=== PATIENT | male | born 1945 | race American Indian/Alaskan Native ===

== ENCOUNTER 2019-12-13 15:37 | Emergency (ER) | payer SELFPAY ==
--- NOTE | 2019-12-13 18:05 | Event Note ---
ED Screening Note Date of service: 12/13/19 Time: 18:04 ED Screening Note: Patient complains of sudden worsening of low back pain and faculty standing He states mild weakness in his legs without numbness He denies any new injuries Denies loss of bladder/bowel control This initial assessment/diagnostic orders/clinical plan/treatment(s) is/are subject to change based on patients health status, clinical progression and re- assessment by fellow clinical providers in the ED. Further treatment and workup at subsequent clinical providers discretion. Patient/guardian urged not to elope from the ED as their condition may be serious if not clinically assessed and managed. Initial orders include: CT lumbar
[2019-12-13 19:02] LABS: Basophils % (Auto) 0.5 % (0.0-1.8); Eosinophils % (Auto) 0.1 % (0.0-4.3); Hematocrit 40.1 % (35.5-45.6); Hemoglobin 13.8 gm/dl (11.8-15.2); Lymphocytes # (Auto) 1.1 K/mm3 (1.2-5.4); Lymphocytes % (Auto) 14.6 % (13.4-35.0); Mean Corpuscular HGB Conc 35 % (32-34); Mean Corpuscular Volume 97 fl (84-94); Monocytes # (Auto) 0.8 K/mm3 (0.0-0.8); Monocytes % (Auto) 10.9 % (0.0-7.3); Platelet Count 172 K/mm3 (140-440); Red Blood Count 4.16 M/mm3 (3.65-5.03); Red Cell Distribution Width 13.2 % (13.2-15.2)
[2019-12-13 19:13] LABS: Alanine Aminotransferase 67 units/L (7-56); Albumin 4.4 g/dL (3.9-5); BUN/Creatinine Ratio 8; Blood Urea Nitrogen 6 mg/dL (9-20); Calcium 9.9 mg/dL (8.4-10.2); Hemolysis Index 5
--- NOTE | 2019-12-13 21:00 | Cat Scan Report ---
CT lumbar spine wo con INDICATION / CLINICAL INFORMATION: 74 years Male; low back pain and leg weakness. TECHNIQUE: Axial CT images of the lumbar spine were obtained after administration of intrathecal contrast. Sagi ttal and coronal reformatted images were produced. All CT scans at this location are performed using CT dose reduction for ALARA by means of automated exposure control. COMPARISON: None available. FINDINGS: POST-SURGICAL CHANGES: None. ALIGNMENT: There is no significant spondylolisthesis or scoliosis involving lumbar spine. VERTEBRAE: There are notable a focal endplate changes anteriorly at L4-5. There is marked disc space narrowing at L5-S1 with mild degenerative endplate changes. There is also mild anterior osteophytic f ormation at L2-3. There is no clear CT evidence of acute compression fracture involving the lumbar sp ine. INTERVERTEBRAL DISCS: The posterior spondylosis slightly encroaches on the right lateral recess. Donald tionally, there is moderate to right and mild left neural foraminal narrowing. The broad-based disc bulge at L4-5 appears to mildly deform the ventral thecal sac. There is mild rig ht neural foraminal narrowing at. The broad-based disc protrusion at L4-5 appears to contribute to mo derate spinal stenosis along with the facet joint hypertrophy. The neural foramen appear patent. The disc bulge at L2-3 slightly flattens the ventral thecal sac. The neural foramen are patent. There is no CT evidence of significant stenosis at L1-2. PARASPINAL SOFT TISSUES: No significant abnormality. ADDITIONAL FINDINGS: None. IMPRESSION: 1. There is no CT evidence of acute compression fracture involving lumbar spine. 2. There are multilevel degenerative changes as detailed above. Signer Name: Tres Broussard MD Signed: 12/13/2019 8:56 PM Workstation Name: [id number]
[2019-12-13 23:47] VITALS: BP 133/82
[2019-12-14] MEDS ORDERED: dexAMETHasone 20 MG/5 ML VIAL IV ONE (00:40)
[2019-12-14] MEDS ORDERED: ONDANSETRON 4 MG ODT TAB PO ONE (00:40)
[2019-12-14] MEDS ORDERED: HYDROcodone/ACETAMINOPHEN 5-325 MG TAB PO ONE (00:40)
--- NOTE | 2019-12-14 01:05 | XRay Report ---
CHEST 1 VIEW INDICATION / CLINICAL INFORMATION: cough. COMPARISON: None available. FINDINGS: SUPPORT DEVICES: None. HEART / MEDIASTINUM: No significant abnormality. LUNGS / PLEURA: No significant pulmonary or pleural abnormality. No pneumothorax. ADDITIONAL FINDINGS: No significant additional findings. IMPRESSION: 1. No acute findings. Signer Name: Lena Gordillo MD Signed: 12/14/2019 1:01 AM Workstation Name: [id number]
[2019-12-14] MEDS ORDERED: POTASSIUM CHLORIDE ER 20 MEQ TAB PO ONE (02:16)
--- NOTE | 2019-12-14 02:24 | Emergency Department Report ---
ED Back Pain/Injury HPI - General Chief Complaint: Back Pain/Injury Stated Complaint: BACK PAINS Time Seen by Provider: 12/13/19 18:00 Source: patient Limitations: Physical Limitation - History of Present Illness Initial Comments: Patient is a 74-year-old -Italian male with a history of chronic low back pain and hypertensionwho presents to the ED with complaint of acute exacerbation of his chronic low back pain for the last 8 hours. Patient states that he was walkng around the yard when the pain got worse and then he stopped and sat down but was unable to get up because of severe low back pain. Patient states that he has been taking nhnz-[id number] medications for pain with no relief. Patient denies fall, traumatic injury, heavy lifting, hematuria, dysuria, urinary frequency and urgency, abdominal pain, fever, chills, cough, chest pain or shortness of breath, dizziness, syncope, seizures, numbness and tingling or weakness of lower extremities bilaterally, urinary or bowel incontinence and saddle paresthesia. MD Complaint: back pain (LOWER BACK PAIN) -: Gradual, year(s) (3) Similar Symptoms Previously: Yes (chronic low back pain) Place: home Radiation: none Severity: severe Severity scale (0 -10): 8 Quality: sharp, aching Consistency: constant Improves With: none Worsens With: movement, walking Associated Symptoms: denies other symptoms. denies: confusion, weakness, chest pain, numbness, difficulty walking, cough, difficulty urinating, diaphoresis, incontinence, fever/chills, constipation, headaches, abdominal pain, nausea/vomiting, rash, shortness of breath, other - Related Data Previous Rx's Medication Instructions Recorded Last Taken Type Ibuprofen [Motrin] 600 mg PO Q8H PRN #30 tablet 12/14/19 Unknown Rx predniSONE [Deltasone] 40 mg PO QDAY #12 tab 12/14/19 Unknown Rx traMADoL [Ultram] 50 mg PO Q6HR PRN #12 tablet 12/14/19 Unknown Rx Allergies Allergy/AdvReac Type Severity Reaction Status Date / Time No Known Allergies Allergy Unverified 12/13/19 18:00 ED Review of Systems ROS: Stated complaint: BACK PAINS Other details as noted in HPI Constitutional: denies: chills, fever Eyes: denies: eye pain, eye discharge, vision change ENT: denies: ear pain, throat pain Respiratory: denies: cough, shortness of breath, wheezing Cardiovascular: denies: chest pain, palpitations Endocrine: no symptoms reported Gastrointestinal: denies: abdominal pain, nausea, diarrhea Genitourinary: denies: urgency, dysuria Musculoskeletal: back pain (lower back pain), arthralgia (lower back pain). denies: joint swelling Skin: denies: rash, lesions Neurological: denies: headache, weakness, paresthesias Psychiatric: denies: anxiety, depression Hematological/Lymphatic: denies: easy bleeding, easy bruising ED Past Medical Hx - Past Medical History Previous Medical History?: Yes Hx Hypertension: Yes - Surgical History Past Surgical History?: Yes Additional Surgical History: surgery to remove stones in bladder - Social History Smoking Status: Never Smoker Substance Use Type: None - Medications Home Medications: Home Medications Medication Instructions Recorded Confirmed Last Taken Type Ibuprofen [Motrin] 600 mg PO Q8H PRN #30 tablet 12/14/19 Unknown Rx predniSONE [Deltasone] 40 mg PO QDAY #12 tab 12/14/19 Unknown Rx traMADoL [Ultram] 50 mg PO Q6HR PRN #12 tablet 12/14/19 Unknown Rx ED Physical Exam - General Limitations: Physical Limitation General appearance: alert, in no apparent distress - Head Head exam: Present: atraumatic, normocephalic, normal inspection - Eye Eye exam: Present: normal appearance, PERRL, EOMI Pupils: Present: normal accommodation - ENT ENT exam: Present: normal exam, normal orophraynx, mucous membranes moist, TM's normal bilaterally, normal external ear exam - Neck Neck exam: Present: normal inspection, full ROM - Respiratory Respiratory exam: Present: normal lung sounds bilaterally. Absent: respiratory distress, wheezes, rales, rhonchi, chest wall tenderness, accessory muscle use, decreased breath sounds, prolonged expiratory - Cardiovascular Cardiovascular Exam: Present: normal rhythm, tachycardia, normal heart sounds. Absent: systolic murmur, diastolic murmur, rubs, gallop - GI/Abdominal GI/Abdominal exam: Present: soft, normal bowel sounds. Absent: distended, ten derness, guarding, rebound, hyperactive bowel sounds, hypoactive bowel sounds, organomegaly - Extremities Exam Extremities exam: Present: normal inspection, full ROM, normal capillary refill - Back Exam Back exam: Present: normal inspection, full ROM, tenderness (Palpable lumbosacral paraspinal musculoskeletal tenderness), muscle spasm, paraspinal tenderness. Absent: CVA tenderness (R), CVA tenderness (L), vertebral t enderness - Neurological Exam Neurological exam: Present: alert, oriented X3, CN II-XII intact, normal gait, reflexes normal - Psychiatric Psychiatric exam: Present: normal affect, normal mood - Skin Skin exam: Present: warm, dry, intact, normal color. Absent: rash ED Course Vital Signs 12/13/19 12/13/19 12/13/19 16:24 18:05 23:46 Temperature 98.2 F 98.3 F Pulse Rate 115 H 121 H 111 H Respiratory 18 16 Rate Blood Pressure 142/90 133/82 [Right] O2 Sat by Pulse 99 99 98 Oximetry 12/14/19 02:57 Temperature Pulse Rate 86 Respiratory 18 Rate Blood Pressure [Right] O2 Sat by Pulse 98 Oximetry ED Medical Decision Making - Lab Data Result diagrams: 12/13/19 18:17 12/13/19 18:17 - Radiology Data Radiology results: report reviewed, [place] [address] Cat Scan Report Signed Patient: JONNY RANGEL MR#: [id number] : 1945 Acct:[id number] Age/Sex: 74 / M ADM Date: 12/13/19 Loc: ED Attending Dr: Ordering Physician: RANJANA ROBERSON Date of Service: 12/13/19 Procedure(s): CT lumbar spine wo con Accession Number(s): [id number] cc: RANJANA ROBERSON CT lumbar spine wo con INDICATION / CLINICAL INFORMATION: 74 years Male; low back pain and leg weakness. TECHNIQUE: Axial CT images of the lumbar spine were obtained after administration of intrathecal contrast. Sagittal and coronal reformatted images were produced. All CT scans at this location are performed using CT dose reduction for ALARA by means of automated exposure control. COMPARISON: None available. FINDINGS: POST-SURGICAL CHANGES: None. ALIGNMENT: There is no significant spondylolisthesis or scoliosis involving lumbar spine. VERTEBRAE: There are notable a focal endplate changes anteriorly at L4-5. There is marked disc space narrowing at L5-S1 with mild degenerative endplate changes. There is also mild anterior osteophytic formation at L2-3. There is no clear CT evidence of acute compression fracture involving the lumbar spine. INTERVERTEBRAL DISCS: The posterior spondylosis slightly encroaches on the right lateral recess. Additionally, there is moderate to right and mild left neural foraminal narrowing. The broad-based disc bulge at L4-5 appears to mildly deform the ventral thecal sac. There is mild right neural foraminal narrowing at. The broad-based disc protrusion at L4-5 appears to contribute to moderate spinal stenosis along with the facet joint hypertrophy. The neural foramen appear patent. The disc bulge at L2-3 slightly flattens the ventral thecal sac. The neural foramen are patent. There is no CT evidence of significant stenosis at L1-2. PARASPINAL SOFT TISSUES: No significant abnormality. ADDITIONAL FINDINGS: None. IMPRESSION: 1. There is no CT evidence of acute compression fracture involving lumbar spine. 2. There are multilevel degenerative changes as detailed above. Signer Name: Tres Broussard MD Signed: 12/13/2019 8:56 PM Workstation Name: [id number] Transcribed By: MR Dictated By: Tres Broussard MD Electronically Authenticated By: Tres Broussard MD Signed Date/Time: 12/13/192055 DD/ 50 TD/TT: -- Findings [facility] [address] [place] [address] XRay Report Signed Patient: JONNY RANGEL MR#: [id number] : 1945 Acct:[id number] Age/Sex: 74 / M ADM Date: 12/13/19 Loc: ED Attending Dr: Ordering Physician: LONDON SOUSA Date of Service: 12/14/19 Procedure(s): XR chest 1V ap Accession Number(s): [id number] cc: LONDON SOUSA Fluoro Time In Minutes: CHEST 1 VIEW INDICATION / CLINICAL INFORMATION: cough. COMPARISON: None available. FINDINGS: SUPPORT DEVICES: None. HEART / MEDIASTINUM: No significant abnormality. LUNGS / PLEURA: No significant pulmonary or pleural abnormality. No pneumothorax. ADDITIONAL FINDINGS: No significant additional findings. IMPRESSION: 1. No acute findings. Signer Name: Lena Gordillo MD Signed: 12/14/2019 1:01 AM Workstation Name: [email or web address] Transcribed By: Dictated By: Lena Gordillo MD Electronically Authenticated By: Lena Gordillo MD Signed Date/Time: 12/14/19100 DD/ TD/TT: - Medical Decision Making This is a 74-year-old -Italian male with a history of chronic low back pain and hypertensionwho presents to the ED with complaint of acute exacerbation of his chronic low back pain for the last 8 hours. Patient states that he was walkng around the yard when the pain got worse and then he stopped and sat down but was unable to get up because of severe low back pain. Patient states that he has been taking jbud-vti-vkoqmxl medications for pain with no relief. In the ED, patient is alert and oriented x3 and is not in distress but tachycardic and afebrile in triage. Patient was treated for pain in the ED. Lab test results were reviewed and showed mild hypokalemia of 3.0 mmol/L, AST of 103 and ALT of 67. The rest of the lab test results are nonactionable. Chest x-ray showed no acute cardiopulmonary abnormalities or pneumonitis. The L-spine CT scan without contrast showed no acute fracture or subluxation but chronic severe degenerative lumbar disc disease. On reevaluation, patient's pain is well controlled medications. Patient is ambulatory in the ED with no difficulties. Patient was discharged home on pain medications and was advised to follow-up with his primary care physician in 5 to 7 days for reevaluation or return to the ED immediately if symptoms get worse. - Differential Diagnosis muscle spasm; chronic back pain; Lumbar disc disease; Muscle strain Critical care attestation.: If time is entered above; I have spent that time in minutes in the direct care of this critically ill patient, excluding procedure time. ED Disposition Clinical Impression: Spasm of muscle of lower back, Strain of muscle, fascia and tendon of lower back, initial encounter Chronic low back pain with sciatica Qualifiers: Back pain laterality: bilateral Sciatica laterality: bilateral sciatica Qualified Code(s): M54.42 - Lumbago with sciatica, left side Disposition: TO HOME OR SELFCARE Is pt being admited?: No Does the pt Need Aspirin: No Condition: Stable Instructions: Muscle Cramps and Spasms, [id number], Muscle Strain, Easy-to-Re ad, Chronic Back Pain, [id number] Additional Instructions: Take medications as needed with food for pain, drink plenty of fluids and follow-up with your primary care physician in 5 to 7 days for reevaluation. Return to the ED immediately if symptoms get worse. Prescriptions: predniSONE [Deltasone] 40 mg PO QDAY #12 tab Ibuprofen [Motrin] 600 mg PO Q8H PRN #30 tablet PRN Reason: Pain traMADoL [Ultram] 50 mg PO Q6HR PRN #12 tablet PRN Reason: Pain Referrals: [facility] [Provider Group] - 7-10 days Time of Disposition: 02:24 Print Language: LEBANESE
== END 2019-12-14 02:57 | disposition home or self-care (01) ==
LOC: ED 15:37
DX: S39.012A Strain of muscle, fascia and tendon of lower back, initial encounter (principal); M54.42 Lumbago with sciatica, left side; M62.830 Muscle spasm of back; I10 Essential (primary) hypertension; Z79.899 Other long term (current) drug therapy; X58.XXXA Exposure to other specified factors, initial encounter; Y93.89 Activity, other specified; Y92.89 Other specified places as the place of occurrence of the external cause; Y99.8 Other external cause status
CPT/HCPCS: 36415; 71045; 72131; 80053; 85025; 96374; 99285; J1100; Q0162